=== PATIENT | female | born 1990 | race Caucasian/White ===

== ENCOUNTER 2020-06-11 21:39 | Emergency (ER) | payer OTHER ==
[~2020-06-11] VITALS: Ht 170.2 cm; Wt 108.9 kg
[2020-06-11 21:42] VITALS: BP 159/95
[2020-06-11] MEDS ORDERED: IBUPROFEN 800800 M1 PO (22:27)
[2020-06-11] MEDS ORDERED: ZONEGRAN100 MG PO (23:00)
[2020-06-11] MEDS ORDERED: OXTELLAR XR300 MG PO (23:00)
[2020-06-11] MEDS ORDERED: PAXIL20 MG PO (23:01)
== END 2020-06-11 23:00 | disposition home or self-care (01) ==
LOC: ER 21:39
DX: S83.92XA Sprain of unspecified site of left knee, initial encounter (principal); M25.522 Pain in left elbow; F17.210 Nicotine dependence, cigarettes, uncomplicated; W01.0XXA Fall on same level from slipping, tripping and stumbling without subsequent striking against object, initial encounter; Y93.41 Activity, dancing; Y92.89 Other specified places as the place of occurrence of the external cause; Y99.9 Unspecified external cause status

== ENCOUNTER → 2020-11-23 | Outpatient (CLI) | payer OTHER ==
[~2020-11-23] MED LIST: FOLIC ACID1 MG PO; IBUPROFEN 800800 M1 PO; OXTELLAR XR300 MG PO; PAXIL20 MG PO; ZONEGRAN100 MG PO
== END ==
LOC: LAB 11:09
PROVIDERS: ATTEND Student in an Organized Health Care Education/Training Program
DX: Z01.812 Encounter for preprocedural laboratory examination (principal); Z20.822 Contact with and (suspected) exposure to COVID-19

== ENCOUNTER 2020-11-24 06:06 | Day surgery (SDC) | payer OTHER ==
[~2020-11-24] VITALS: Ht 167.6 cm; Wt 104.3 kg
[2020-11-24 06:57] VITALS: BP 124/67
[2020-11-24 09:34] VITALS: BP 124/67
--- NOTE | 2020-11-30 16:18 | O ---
[facility] [place] [address] OPERATIVE REPORT Name: CHIRAG SCHMIDT Room #: DEP [facility].#: [id number] Admission: 11/24/20 Attend Phys: Lito Trujillo MD Discharge: 11/24/20 Date of : 88 Report #: [id number] THIS REPORT FOR: cc: Hattie Bobby Grace N. FNP McCabe, Michael P. MD ~ DATE OF SERVICE: 11/24/2020 SERVICE: Orthopedics. FACILITY: [facility]. SURGEON: Lito Trujillo MD RESTAURANT FLOOR MANAGER: Lacey Fernandez. PREOPERATIVE DIAGNOSES: 1. Left elbow pain. 2. Left elbow synovitis. POSTOPERATIVE DIAGNOSES: 1. Left elbow pain. 2. Left elbow synovitis. 3. Left elbow loose bodies. PROCEDURE PERFORMED: Left elbow arthroscopy with synovectomy and loose body removal. COMPLICATIONS: None. DRAINS: None. SPECIMENS: Loose bodies, discarded. ANESTHESIA: General. FINDINGS: 1. Synovitis throughout the elbow. 2. Loose bodies in the anterior and posterior compartment, excised. HISTORY: The patient is a 29-year-old female who took a fall x2 in this winter and spring of this past year, injured her elbow, at which time she was having continued pain and mechanical symptoms that were suggestive of a loose body, although the MRI was inconclusive in this regard. We tried nonoperative measures, but ultimately she wished to move for definitive surgical treatment after continued to have symptoms in the elbow that were affecting activities of [facility] [address] [place] [address] OPERATIVE REPORT Name: CHIRAG SCHMIDT Room #: DEP [facility] M.R.#: [id number] Admission: 11/24/20 Attend Phys: Lito Trujillo MD Discharge: 11/24/20 Date of : 88 Report #: [id number] daily living. Risks, benefits, alternatives and indications for surgery discussed with her in detail. Risks include but not limited to pain, bleeding, infection, injuring nerves or blood vessels, persistent pain despite surgical intervention, failure of any repairs, progression of preexisting chondral injury, stiffness, need for further surgery as well as complications related to anesthesia. Despite the risks, she wished to proceed. DESCRIPTION OF PROCEDURE: After left upper extremity was correctly identified in the preoperative holding area as the operative extremity, the patient was taken to the operating room where general anesthesia was induced without complications. She was padded appropriately. Prophylactic antibiotics were administered in appropriate time. She was turned into the lateral decubitus position with left side up, right side down and padded appropriately. Tourniquet was applied. Left upper extremity was then prepped and draped in standard sterile fashion. Timeout procedure was performed. Esmarch were used, tourniquet inflated to 250 mmHg. 30 mL of sterile saline was insufflated into the joint to distend the capsule. A skin moises incision was then made and a proximal anteromedial portal was established with blunt trocar, fluid was seen to egress from the cannula. The scope was placed in the elbow. A proximal anterolateral portal was then established with outside-in technique with the skin moises incision and the blunt trocar and then diagnostic arthroscopy was performed. At the anterior aspect of the joint, there was synovitis throughout the elbow, this was resected with a shaver. There was a loose body that was tethered to the anterior aspect of the distal humerus that was bony and cartilaginous, some of this was easily resected with a shaver, but the primary bony component was not and so I placed a sled into the elbow and then removed this piece with a grasper. The debridement was completed including the chondroplasty of the radial head. She had some very mild chondromalacia at the origin of the loose body, presumably at the radiocapitellar joint, but really she had a nice job of healing this and there were no grade 4 lesions. There were no loose chondral fragments or flap tears in either. Proximal posterior portal was then established and a transtendinous cannula was established and then the posterior compartment was carefully evaluated. A proximal posterolateral portal was established as well and then the shaver was used to resect a significant amount of thickened proliferative synovitis in the posterior elbow. There was a bony loose body here as well in the olecranon fossa and this was resected with a shaver. The synovitis was then excised working down the medial gutter, taking care to protect the vital structures medially and then the radial gutter was addressed next. I then established a soft spot portal and resected the posterior plica. This also was quite thickened, proliferative, and was impinging in the radiocapitellar joint posteriorly. After this was resected, the proximal radial ulnar joint as well [address] [address] OPERATIVE REPORT Name: CHIRAG SCHMIDT Room #: DEP [facility] [place].#: [id number] Admission: 11/24/20 Attend Phys: Lito Trujillo MD Discharge: 11/24/20 Date of : 88 Report #: [id number] as the posterior aspect of the radiocapitellar joint could be visualized, there was a good healthy cartilage here and normal articulation. Finally, the scope was then placed back into the anterior compartment to ensure that there were no residual loose bodies that had egressed into the anterior aspect of the elbow. After this was completed, the arthroscopic effusion was drained and instruments were removed. Portal sites were closed. 0.5% Marcaine with epinephrine was injected around the portal sites with care taken to protect the soft tissues. A sterile dressing was applied. The patient was awakened from anesthesia and taken to recovery room in stable condition. No complications. All counts were correct. <ELECTRONICALLY SIGNED> By: Lito Trujillo MD 11/30/20 1618 0830 [id number] Lito Trujillo MD /nt
== END 2020-11-24 10:25 | disposition home or self-care (01) ==
LOC: TBA 06:06 → OR 06:06
PROVIDERS: ATTEND Orthopaedic Surgery Sports Medicine
DX: M25.522 Pain in left elbow (principal); M65.88 Other synovitis and tenosynovitis, other site; M24.022 Loose body in left elbow; F41.9 Anxiety disorder, unspecified; F17.210 Nicotine dependence, cigarettes, uncomplicated; Z98.890 Other specified postprocedural states; Z79.899 Other long term (current) drug therapy
CPT/HCPCS: 50010; 50101; 50172; 50386; 56527; 57092; 57103; 57178; 58577; 58590; 62110; 62900; 70005